=== PATIENT | male | born 1965 | race American Indian/Alaskan Native ===

== ENCOUNTER 2018-06-04 18:48 | Emergency (ER) | payer MEDICARE, MEDICAID ==
[2018-06-04 19:25] VITALS: BP 133/88
[2018-06-04] MEDS ORDERED: NORCO 5/325 PO ONE (20:04)
--- NOTE | 2018-06-04 20:09 | Emergency Department Report ---
ED Upper Extremity Inj HPI - General Chief Complaint: Extremity Injury, Upper Stated Complaint: SWOLLEN (R) HAND/(R) LEG Time Seen by Provider: 06/04/18 19:58 Source: patient Mode of arrival: Ambulatory Limitations: No Limitations - History of Present Illness Initial Comments: pt is a 52 y/o aam with complaint of right hand pain states hit right hand no right knee 2 days ago swelling pain mild deformity right dorsal hand 5th metacapal , rom restricted by pain , adduction abduction intact, hx of dvt rle on xarelto has xarelto in his possession has good follow up for same, and rx at [facility] for refills. Complaint: Injury to:: right, hand Onset/Timin -: days(s) Other Extremity Injury: Hand: Right (dorsal hand ) Other Injuries: none Handedness: right Place: home Severity scale (0 -10): 5 Improves With: none Worsens With: movement of extremity Context: direct blow - Related Data Home Medications Medication Instructions Recorded Confirmed Last Taken Cyclobenzaprine HCl [Flexeril] 10/15/13 10/15/13 Unknown FLUoxetine [PROzac] 10/15/13 10/15/13 Unknown Melatonin/Pyridoxine [Melatonin 3 10/15/13 10/15/13 Unknown mg Tablet] Methocarbamol [Robaxin TAB] 10/15/13 10/15/13 Unknown Naltrexone (Nf) [Revia (Nf)] 10/15/13 10/15/13 Unknown OLANzapine [ZyPREXA] 10/15/13 10/15/13 Unknown Triamter/Hctz 37.5-25 mg 10/15/13 10/15/13 Unknown [Maxzide-25] cloNIDine [Catapres] 10/15/13 10/15/13 Unknown Previous Rx's Medication Instructions Recorded Last Taken Type HYDROcodone/ACETAMINOPHEN 1 each PO QID PRN 3 Days #12 tablet 06/04/18 Unknown Rx [Hydrocodone-Acetamin 5-325 mg] Allergies Allergy/AdvReac Type Severity Reaction Status Date / Time Iodinated Contrast- Oral and Allergy Rash Verified 10/15/13 16:36 IV Dye [Iodinated Contrast Media - IV Dye] tomato Allergy Rash Verified 06/04/18 19:25 ED Review of Systems ROS: Stated complaint: SWOLLEN (R) HAND/(R) LEG Other details as noted in HPI Constitutional: denies: chills, fever Eyes: denies: eye pain, eye discharge, vision change ENT: denies: ear pain, throat pain Respiratory: denies: cough, shortness of breath, wheezing Cardiovascular: denies: chest pain, palpitations Endocrine: no symptoms reported Gastrointestinal: denies: abdominal pain, nausea, diarrhea Genitourinary: denies: urgency, dysuria Musculoskeletal: joint swelling, myalgia Skin: as per HPI Neurological: denies: headache, weakness, paresthesias Psychiatric: denies: anxiety, depression Hematological/Lymphatic: denies: easy bleeding, easy bruising ED Past Medical Hx - Past Medical History Previous Medical History?: Yes Hx Hypertension: Yes Hx CVA: Yes Hx Deep Vein Thrombosis: Yes (right leg) Hx Arthritis: Yes Hx Psychiatric Treatment: Yes Hx Asthma: Yes Hx COPD: Yes Additional medical history: blind in Right eye, low back pain. sciatica - Surgical History Past Surgical History?: Yes Additional Surgical History: tonsil. bld clot removed from brain - Social History Smoking Status: Current Every Day Smoker Substance Use Type: Alcohol - Medications Home Medications: Home Medications Medication Instructions Recorded Confirmed Last Taken Type Cyclobenzaprine HCl [Flexeril] 10/15/13 10/15/13 Unknown History FLUoxetine [PROzac] 10/15/13 10/15/13 Unknown History Melatonin/Pyridoxine [Melatonin 3 10/15/13 10/15/13 Unknown History mg Tablet] Methocarbamol [Robaxin TAB] 10/15/13 10/15/13 Unknown History Naltrexone (Nf) [Revia (Nf)] 10/15/13 10/15/13 Unknown History OLANzapine [ZyPREXA] 10/15/13 10/15/13 Unknown History Triamter/Hctz 37.5-25 mg 10/15/13 10/15/13 Unknown History [Maxzide-25] cloNIDine [Catapres] 10/15/13 10/15/13 Unknown History HYDROcodone/ACETAMINOPHEN 1 each PO QID PRN 3 Days #12 tablet 06/04/18 Unknown Rx [Hydrocodone-Acetamin 5-325 mg] ED Physical Exam - General Limitations: No Limitations General appearance: alert, in no apparent distress - Head Head exam: Present: atraumatic, normocephalic - Eye Eye exam: Present: normal appearance - ENT ENT exam: Present: mucous membranes moist - Neck Neck exam: Present: normal inspection - Respiratory Respiratory exam: Present: normal lung sounds bilaterally. Absent: respiratory distress - Cardiovascular Cardiovascular Exam: Present: regular rate, normal rhythm. Absent: systolic murmur, diastolic murmur, rubs, gallop - GI/Abdominal GI/Abdominal exam: Present: soft, normal bowel sounds - Rectal Rectal exam: Present: deferred - Extremities Exam Extremities exam: Present: normal inspection, tenderness, normal capillary refill - Expanded Upper Extremity Exam Right Hand Wrist exam: Present: tenderness, swelling, ecchymosis, deformity (rt dorsal hand with swelling no mild deformity ). Absent: crepidus, dislocation, erythema, amputation, nail avulsion, subungual hematoma Neuro motor exam: Present: wrist extension intact, thumb opposition intact, thumb IP flexion intact, thumb adduction intact, fingers 2-5 abduction intact Neurosensory exam: Present: 2-point discrimination, radial nerve intact, ulnar nerve intact, median nerve intact Vascular: Present: normal capillary refill, radial pulse, brachial pulse, ulnar pulse. Absent: vascular compromise, pulse deficit radial art, pulse deficit ulnar art, pulse deficit brachial art - Back Exam Back exam: Present: normal inspection, full ROM. Absent: tenderness - Neurological Exam Neurological exam: Present: alert, oriented X3, CN II-XII intact, normal gait, reflexes normal. Absent: motor sensory deficit - Psychiatric Psychiatric exam: Present: normal affect, normal mood - Skin Skin exam: Present: warm, dry, intact, normal color. 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 pt has no prescription listed on [facility] plint check completed with appropriate space via two finger insertion , distal pulses + 2 Critical care attestation.: If time is entered above; I have spent that time in minutes in the direct care of this critically ill patient, excluding procedure time. ED Disposition Clinical Impression: Closed boxer's fracture Qualifiers: Encounter type: initial encounter Qualified Code(s): S62.339A - Displaced fracture of neck of unspecified metacarpal bone, initial encounter for closed fracture Disposition: TO HOME OR SELFCARE Is pt being admited?: No Does the pt Need Aspirin: No Condition: Good Instructions: Hand Fracture (ED) Prescriptions: HYDROcodone/ACETAMINOPHEN [Hydrocodone-Acetamin 5-325 mg] 1 each PO QID PRN 3 Days #12 tablet PRN Reason: pain Referrals: GERARDO FRANCO MD [Staff Physician] - 3-5 Days Forms: Work/School Release Form(ED) Time of Disposition: 20:18
--- NOTE | 2018-06-04 21:14 | XRay Report ---
FINAL REPORT PROCEDURE: Right hand. TECHNIQUE: Three views. HISTORY: pain and swelling after hitting hand COMPARISON: No prior studies are available for comparison. FINDINGS: There is an acute fracture through the distal diaphysis of the 5th metacarpal. There is no displacement. There is approximately 20 degrees of anterior angulation of the distal fragment. The remaining bones appear intact. The joint spaces appear normal. The soft tissues are unremarkable. IMPRESSION: Acute fracture of the 5th metacarpal.
== END 2018-06-04 20:41 | disposition home or self-care (01) ==
LOC: ED 18:48
DX: S62.306A Unspecified fracture of fifth metacarpal bone, right hand, initial encounter for closed fracture (principal); I10 Essential (primary) hypertension; M19.90 Unspecified osteoarthritis, unspecified site; J44.9 Chronic obstructive pulmonary disease, unspecified; F17.200 Nicotine dependence, unspecified, uncomplicated; Z91.041 Radiographic dye allergy status; Z86.73 Personal history of transient ischemic attack (TIA), and cerebral infarction without residual deficits; Z86.718 Personal history of other venous thrombosis and embolism; Z91.018 Allergy to other foods; W22.8XXA Striking against or struck by other objects, initial encounter; Y93.89 Activity, other specified; Y92.89 Other specified places as the place of occurrence of the external cause; Y99.8 Other external cause status
CPT/HCPCS: 99283